=== PATIENT | female | born 1950 | race Caucasian/White ===

== ENCOUNTER → 2022-12-20 10:16 | Outpatient (CLI) | payer MEDICARE, BC, SELFPAY ==
[2022-12-20 11:26] LABS: Alanine Aminotransferase 18 IU/L (<35); Albumin 4.5 g/dL (3.5-5.0); Albumin Globulin Ratio 1.7 (1.0-2.8); Alkaline Phosphatase 65 U/L (38-126); Aspartate Aminotransferase 30 IU/L (14-36); BUN Creatinine Ratio 14.7 (6-22); Bilirubin Total 0.6 mg/dL (0.2-1.3); Blood Urea Nitrogen 10 mg/dL (7-17); Calcium 9.2 mg/dL (8.4-10.2); Carbon Dioxide 31 mmol/L (22-32); Chloride 90 mmol/L (98-107); Cholesterol 221 mg/dL (140-199); Estimated Glomerular Filt Rate > 60 mL/min (>60); Globulin 2.7 g/dL (1.7-4.1); Glucose 113 mg/dL (80-110); HDL Cholesterol 96 mg/dL (40-60); HEMOLYSIS < 15 (0-50); LDL Cholesterol Calculated 104 mg/dL (<100); Potassium 4.4 mmol/L (3.4-5.1); Sodium 130 mmol/L (137-145); Total Protein 7.2 g/dL (6.3-8.2); Triglycerides 105 mg/dL (35-150)
== END ==
PROVIDERS: PCP Family Medicine; Referring Provider Family Medicine; Visit Provider Family Medicine
DX: I10 Essential (primary) hypertension (principal); I48.0 Paroxysmal atrial fibrillation
CPT/HCPCS: 36415; 80053; 80061

== ENCOUNTER → 2023-02-16 12:20 | Outpatient (CLI) | payer MEDICARE, BC, SELFPAY ==
--- NOTE | 2023-02-16 12:21 | DI.RAD.S_ITS ---
Bone Density Report Name: KRYSTYNA COLLIER Age: 72 Sex: Female Ethnicity: White Date of : 1950 Indication: postmenopausal; screening for osteoporosis; Referring Provider: SUSIE VELEZ Study: Bone densitometry was performed. Exam Date: February 16, 2023 Accession number: [id number] Bone Density: Region BMD T-score Z-score Classification AP Spine(L1, L3, L4) 0.983 -0.6 1.7 Normal Femoral Neck (Left) 0.594 -2.3 -0.3 Osteopenia Total Hip (Left) 0.652 -2.4 -0.7 Osteopenia Femoral Neck (Right) 0.631 -2.0 0.0 Osteopenia Total Hip (Right) 0.688 -2.1 -0.4 Osteopenia Total Hip Mean 0.670 -2.3 -0.6 Osteopenia World Health Organization criteria for BMD impression classify patients as: Normal (T-score at or above -1.0), Osteopenia (T-score between -1.0 and -2.5), or Osteoporosis (T-score at or below -2.5). 10-year Fracture Risk(1): Major Osteoporotic Fracture 14% Hip Fracture 3.6% Reported Risk Factors: [place] (), Neck BMD=0.594, BMI=26.5 (1) FRAX(R) Version 3.08. Fracture probability calculated for an untreated patient. Fracture probability may be lower if the patient has received treatment. Impression: The patient has low bone mass, based on the Left Total Hip T-score. The patient has an estimated ten-year risk of hip fracture of 3.6% and an estimated ten-year risk of major fracture of 14%, based on the WHO FRAX algorithm. Discussion: BONE DENSITY IS LOW AT ONE OR MORE SKELETAL SITES. THE PATIENT'S BMD AND CLINICAL RISK FACTORS CONTRIBUTE TO THIS PATIENT'S INCREASED RISK OF FRACTURE. This patient's lowest T-score is low at one or more skeletal sites. It meets the World Health Organization's (WHO) criteria for low bone mass (T-score between -1.0 and -2.5). The patient's 10-year risk of hip fracture as calculated by FRAX exceeds the threshold where pharmacological therapy is recommended by the National Osteoporosis Foundation (NOF). However, all treatment decisions require clinical judgment and consideration of individual patient factors, including patient preferences, comorbidities, previous drug use, risk factors not captured in the FRAX model (e.g., frailty, falls, vitamin D deficiency, increased bone turnover, interval significant decline in bone density) and possible under or overestimation of fracture risk by FRAX. The patient should follow a healthful lifestyle (good nutrition with adequate calcium and vitamin D, and appropriate weight-bearing exercise). Follow-Up: Consider a repeat BMD and Vertebral Fracture Assessment (VFA) exam in 2 years or sooner if medically necessary, to reassess this patient's status. Reported by: RADHA CRAFT M.D. on 02/16/2023 2:28:00 PM.
== END ==
PROVIDERS: PCP Family Medicine; Referring Provider Family Medicine; Visit Provider Family Medicine
DX: Z78.0 Asymptomatic menopausal state (principal); Z13.820 Encounter for screening for osteoporosis; M85.852 Other specified disorders of bone density and structure, left thigh; Z90.710 Acquired absence of both cervix and uterus
CPT/HCPCS: 77080

== ENCOUNTER → 2023-03-26 12:16 | Outpatient (CLI) | payer MEDICARE, BC, SELFPAY ==
--- NOTE | 2023-03-26 12:30 | DI.MRI.S_ITS ---
PROCEDURE: MR LUMBAR SPINE WO CON INDICATIONS: low back pain with radiculopathy TECHNIQUE: Noncontrast sagittal T1 spin echo and T2 fast echo, sagittal STIR, and T2 fast spin echo through the lumbar spine. In cases with scoliosis, additional coronal T2 fast spin echo may be performed. COMPARISON: [facility], MR, MR LUMBAR SPINE WITHOUT CONTRAST, 12/21/2020, 11:39. FINDINGS: Image quality: Excellent. Alignment and Curvature: There is normal bony alignment. Bone Marrow: Reactive endplate changes are present throughout the lumbar spine. Compression deformities at L1 and L2 are unchanged from the comparison MRI dated December 21, 2020. Spinal Cord: Conus medullaris terminates at the T12/L1 level. Visualized cord demonstrates normal signal and size. Paraspinous Soft Tissues: No paravertebral masses. T12-L1: Severe disc desiccation and height loss. Retropulsed fracture fragment is redemonstrated and appears unchanged from the prior study. No canal stenosis. No foraminal stenosis. Findings are unchanged. L1-L2: Severe disc desiccation and height loss. Vacuum disc phenomenon. Retropulsed fracture fragment is redemonstrated and is unchanged. Mild canal stenosis. Moderate bilateral foraminal stenosis. Findings are unchanged. L2-L3: Severe disc desiccation and height loss. Broad-based disc bulge. Mild facet ligamentum flavum hypertrophy. Mild canal stenosis. Mild right and moderate left foraminal stenosis. L3-L4: Severe disc desiccation and height loss. Broad-based disc bulge. Moderate facet and ligamentum flavum hypertrophy. No canal stenosis. Mild right and moderate left foraminal stenosis. Findings are unchanged. L4-L5: Severe disc desiccation and height loss. Broad-based disc bulge. Severe facet ligamentum flavum hypertrophy. No canal stenosis. Moderate bilateral foraminal stenosis. Findings are unchanged. L5-S1: Moderate disc desiccation and height loss. Vacuum disc phenomenon. Severe facet ligamentum flavum hypertrophy. No canal stenosis. Severe bilateral foraminal stenosis. Findings are unchanged. IMPRESSION: 1. Overall findings are similar to the study dated December 21, 2020. These findings include compression deformities at L1 and L2, stable retropulsed fracture fragments at these levels, multilevel severe disc desiccation and height loss, mild canal stenosis at L1-L2 and L2-L3, and severe foraminal narrowing at L5-S1. Dictated by: Pamella Cortes M.D. on 03/27/2023 at 10:24 Approved by: Pamella Cortes M.D. on 03/27/2023 at 10:33
== END ==
PROVIDERS: PCP Family Medicine; Referring Provider Family Medicine; Visit Provider Family Medicine
DX: M54.50 Low back pain, unspecified (principal); G89.29 Other chronic pain; M48.061 Spinal stenosis, lumbar region without neurogenic claudication; M48.56XA Collapsed vertebra, not elsewhere classified, lumbar region, initial encounter for fracture
CPT/HCPCS: 72148

== ENCOUNTER → 2023-08-24 12:32 | Outpatient (CLI) | payer MEDICARE, BC, SELFPAY ==
--- NOTE | 2023-08-24 12:33 | DI.RAD.S_ITS ---
PROCEDURE: XR LUMBAR SPINE MIN 4V INDICATIONS: low back pain TECHNIQUE: 5 views of the lumbar spine were acquired, including bilateral oblique views. COMPARISON: [facility], MR, MR LUMBAR SPINE WO CON, 03/26/2023, 12:31. FINDINGS: Bones: 5 nonrib-bearing vertebrae are present. There is stable bony alignment. No acute vertebral body compression fractures. No suspicious bony lesions. Stable chronic appearing anterior compression fractures of L1 and L2. Severe multilevel lumbar spondylitic changes and facet arthropathy. Soft tissues: Overlying bowel gas pattern is normal. No suspicious soft tissue calcifications. Oblique images: No pars defects. IMPRESSION: No acute osseous abnormalities. Stable appearance of severe multilevel lumbar spondylosis. Stable appearance of chronic compression fractures of L1 and L2. Dictated by: Elbert Jeff M.D. on 08/24/2023 at 19:25 Approved by: Elbert Jeff M.D. on 08/24/2023 at 19:28
== END ==
PROVIDERS: PCP Family Medicine; Referring Provider Anesthesiology; Visit Provider Anesthesiology
DX: M47.26 Other spondylosis with radiculopathy, lumbar region (principal); M51.16 Intervertebral disc disorders with radiculopathy, lumbar region; S32.010D Wedge compression fracture of first lumbar vertebra, subsequent encounter for fracture with routine healing; S32.020D Wedge compression fracture of second lumbar vertebra, subsequent encounter for fracture with routine healing; M54.50 Low back pain, unspecified; G89.29 Other chronic pain
CPT/HCPCS: 72110; 99214

== ENCOUNTER 2023-09-13 08:23 | Outpatient (CLI) | payer MEDICARE, BC, SELFPAY ==
[2023-09-13] VITALS (8 sets, daily range): BP systolic 134–151; BP diastolic 61–69; PULSE 53–66; RESP 12–20; TEMP 36.5; O2SAT 98–100
--- NOTE | 2023-09-13 08:38 | DI.RAD.S_ITS ---
PROCEDURE: PAIN L INTERLAMINAR/CAUDAL INJ INDICATIONS: RADICULOPATHY COMPARISON: [facility], CR, XR LUMBAR SPINE MIN 4V, 08/24/2023, 12:34. FINDINGS: Fluoroscopic spot filming was performed to verify placement of spinal needles at the L5-S1 level(s), as labeled on the films. Appropriate location(s) of the needle tip(s) was confirmed by injection of iodinated contrast. IMPRESSION: Intraoperative guidance provided. Dictated by: Andrae Hooper M.D. on 09/13/2023 at 12:29 Approved by: Andrae Hooper M.D. on 09/13/2023 at 12:30
[2023-09-13] MEDS: MIDAZOLAM 2 MG/2 ML VIAL 1 MG IV (09:02)
[2023-09-13] MEDS: DEXAMETHASONE 10 MG/ML VIAL INJ (09:04)
[2023-09-13] MEDS: iopamidoL 15 ML VIAL 3 ML INJ (09:04)
--- NOTE | 2023-09-13 11:01 | P.PCN_ITS ---
Date/Time/Diagnoses Date of procedure: 09/13/23 Time of procedure: 09:00 Procedure Notes Physician: Daryn Andre Total Fluoroscopy time (seconds): 15 Total sedation minutes: 10 Procedure in detail & Post-procedure care: L5-S1 Interlaminar Epidural Steroid Injection Indications: Agueda is presenting for treatment of lumbar radiculopathy with low back and leg pain. Preoperative diagnosis: Lumbar radiculopathy Postoperative diagnosis: Same Focused Examination: Ax3 Mood and affect are normal Vital Signs: VSS ASA: 3 Consent: Following review of allergies and potential side effects/complications, including, but not necessarily limited to, infection, allergic reaction, local tissue breakdown, stroke, temporary or permanent nerve injury, paralysis, and possible , the patient indicated that they understood and agreed to p roceed.? An informed consent document was signed by the patient, witnessed by a nurse and placed in the patient's chart.? Additionally, other treatment options including medications and physical therapy were reviewed with the patient. All questions were answered. Site was then marked. Anesthesia: After review of previous anesthetic history and IV conscious sedation, the patient was deemed safe to proceed with today's procedure with IV conscious sedation. IV sedation was accomplished with midazolam 1 mg administered by the RN after order by Dr. Andre. Sedation was titrated to patient comfort during the course of the procedure. Patient remained responsive to all verbal commands. Position: Prone Monitoring: NIBP, Pulse oximetry, 3 lead EKG Needle used: 18 G 3.5? Tuohy Contrast: Isovue 300M Injectate: Dexamethasone 10 mg with 1% lidocaine 2 mL Technique: The skin was prepped with chloraprep and then draped in a sterile fashion. Time out was performed as per protocol. Oxygen applied via NC. Skin and subcutaneous structures of the needle entry site was then infiltrated with 3 mL of lidocaine 1%. Under AP, lateral and contralateral oblique fluoroscopic control, the Tuohy needle was guided into the L5-S1 epidural space. The space was accessed with loss of resistance technique. Isovue 300M was then injected and the spread was consistent with the epidural space. There was no evidence for intravascular or intrathecal uptake. After negative aspiration, the above- mentioned injectate was then slowly administered and the needle withdrawn. The patient expressed no unusual discomfort or paresthesias during the injection. Band-Aids applied to injection sites. EBL: less than 1 ml Complications: None Post Procedure: Patient was taken to the recovery and monitored. The patient was provided a Pain Log to continue to record the patient's response to the target- specific procedure prior to the patient's follow-up visit with the referring physician. Patient was stable upon discharge. Detailed post procedure instructions were provided. Patient was asked to call in the event of worsening pain, fever, weakness, numbness or bladder or bowel incontinence.
== END 2023-09-13 08:35 | disposition home or self-care (01) ==
PROVIDERS: PCP Family Medicine; Referring Provider Anesthesiology; Visit Provider Anesthesiology
DX: M54.16 Radiculopathy, lumbar region (principal)
CPT/HCPCS: 62323; 99152; J1100; J2250

== ENCOUNTER 2024-01-10 09:55 | Outpatient (CLI) | payer MEDICARE, BC, SELFPAY ==
[2024-01-10] VITALS (9 sets, daily range): BP systolic 124–185; BP diastolic 58–74; PULSE 53–60; RESP 12–18; O2SAT 97–100
--- NOTE | 2024-01-10 10:30 | DI.RAD.S_ITS ---
PROCEDURE: PAIN L/S TRANSFORAMINAL INJECT INDICATIONS: SPONDYLOSIS COMPARISON: None. FINDINGS: Fluoroscopic spot filming was performed to verify placement of spinal needles at the L4-5 and L5-S1 level(s), as labeled on the films. Appropriate location(s) of the needle tip(s) was confirmed by injection of iodinated contrast. IMPRESSION: Fluoro guidance was provided intraoperatively for right L4-5 and L5-S1 transforaminal YESICA performed by ordering physician. Dictated by: Tha Carpio M.D. on 01/10/2024 at 15:47 Approved by: Tha Carpio M.D. on 01/10/2024 at 15:48
[2024-01-10] MEDS: MIDAZOLAM 2 MG/2 ML VIAL 1 MG IV (10:43)
[2024-01-10] MEDS: DEXAMETHASONE 10 MG/ML VIAL 20 MG INJ (10:46)
[2024-01-10] MEDS: iopamidoL 15 ML VIAL 3 ML INJ (10:47)
[2024-01-10] MEDS: LIDOCAINE 1% (PF) 5 ML INJ (10:47)
[2024-01-10] MEDS: MIDAZOLAM 2 MG/2 ML VIAL 0.5 MG IV (10:55)
--- NOTE | 2024-01-10 12:11 | P.PCN_ITS ---
Date/Time/Diagnoses Date of procedure: 01/10/24 Time of procedure: 10:30 Procedure Notes Physician: Daryn Andre Total Fluoroscopy time (seconds): 32 Total sedation minutes: 18 Procedure in detail & Post-procedure care: Right L4-5 Transforaminal Epidural Steroid Injection Indications: Agueda is presenting for treatment of lumbar radiculopathy with low back and leg pain. Preoperative diagnosis: Lumbar radiculopathy Postoperative diagnosis: Same Focused Examination: Ax3 Mood and affect are normal Vital Signs: VSS ASA: 2 Consent: Following review of allergies and potential side effects/complications, including, but not necessarily limited to, infection, allergic reaction, local tissue breakdown, stroke, temporary or permanent nerve injury, paralysis, and possible , the patient indicated that they understood and agreed to proceed.? An informed consent document was signed by the patient, witnessed by a nurse and placed in the patient's chart.? Additionally, other treatment options including medications and physical therapy were reviewed with the patient. All questions were answered. Site was then marked. Anesthesia: After review of previous anesthetic history and IV conscious sedation, the patient was deemed safe to proceed with today's procedure with IV conscious sedation. IV sedation was accomplished with midazolam 1.5 mg administered by the RN after order by Dr. Andre. Sedation was titrated to patient comfort during the course of the procedure. Patient remained responsive to all verbal commands. Position: Prone Monitoring: NIBP, Pulse oximetry, 3 lead EKG Needle used: 22G, 5 inch spinal needle Contrast: Isovue 300M Injectate: 7.5 mg Dexamethasone mixed with 1% lidocaine 1 ml Technique: The skin was prepped with chloraprep and draped in a sterile fashion. Time out was performed as per protocol. Oxygen applied via NC. Skin and subcutaneous structures of the needle entry site were infiltrated with 3mL of lidocaine 1%. Under fluoroscopic guidance, using an ipsilateral oblique view,?a 22 gauge 5 inch needle was advanced to the base of the right L4?pedicle.? The needle was advanced to the superio-posterior aspect of the neural foramen under lateral view.? Oblique and AP views were rechecked. No paresthesias noted by the patient during needle placement. In AP view and utilizing real-time digital subtraction fluoroscopy, 2 ml contrast was slowly injected. Epidural spread was observed without evidence for intravascular nor intrathecal uptake. Contrast spread was seen craniocaudally. The above injectate was then administered without paresthesias and the needle was subsequently withdrawn. The right L5-S1 level was also attempted but aborted secondary to difficulty accessing the space with obstruction from large osteophytes. Band-Aids applied to injection sites. EBL: less than 1 ml Complications: None Post Procedure: Patient was taken to the recovery and monitored. The patient was provided a Pain Log to continue to record the patient's response to the target- specific procedure prior to the patient's follow-up visit with the referring physician. Patient was stable upon discharge. Detailed post procedure instructions were provided. Patient was asked to call in the event of worsening pain, fever, weakness, numbness or bladder or bowel incontinence.
== END 2024-01-10 11:28 | disposition home or self-care (01) ==
LOC: RAD 09:56
PROVIDERS: PCP Family Medicine; Referring Provider Anesthesiology; Visit Provider Anesthesiology
DX: M54.16 Radiculopathy, lumbar region (principal)
CPT/HCPCS: 64483; 99152; J1100; J2250

== ENCOUNTER 2024-08-11 14:08 | Emergency (ER) | payer MEDICARE, BC, SELFPAY ==
[2024-08-11 14:17] VITALS: BP 132/63; PULSE 69; RESP 18; TEMP 36.6; O2SAT 97; BMI 26.4
--- NOTE | 2024-08-11 16:49 | ED_ITS ---
HPI - Skin/Abscess/Foreign Bdy General Chief complaint: Skin/Abscess/Foreign Body Stated complaint: Fever/poss bacteria infection returned face/neck Time Seen by Provider: 08/11/24 16:49 Source: patient and family Mode of arrival: Ambulatory Limitations: no limitations History of Present Illness HPI narrative: 73-year-old female history of hypertension, dyslipidemia, chronic back pain, paroxysmal atrial fibrillation, rosacea presents with complaint of rash and redness that started in June of her face. She does use makeup she stopped using it did Hibiclens and Aquaphor and it resolved over time. She states she used make up again on Monday had bought new brushes thought she was not using anything she had used before states she might have. Patient states she broke out again on Monday with increased redness on the right forehead and cheek becoming periorbital down her cheeks and towards her neck. Patient states it is a little bit less red today it is itchy and a little bit painful. No crusting o f the eyes her eyelids were swollen. She did some ice which was helpful. Patient states she had a fever of 100.5 at home which prompted her to come for evaluation. She denies any swelling of her lips tongue or airway, no difficulty with breathing, no nausea or vomiting. No shortness of breath. No other GI or urinary symptoms. No rash elsewhere. Patient states she had set up appointment with Dermatology but canceled it because her symptoms had improved. She does have a history of rosacea but states this is a different pattern. Patient notes she was supposed to have follow up preferred no visit before being scheduled for back surgery with Neurosurgery on Monday. Related Data Home Medications Medication Instructions Recorded Confirmed clotrimazole 1 % topical cream 1 applic topical BID 05/30/23 08/02/24 Previous Rx's Medication Instructions Recorded tizanidine 4 mg tablet 4 mg PO Q8H PRN muscle spasticity 12/26/22 #90 tabs desonide 0.05 % topical cream 1 applic topical BID #15 grams 11/01/23 amlodipine 2.5 mg tablet 2.5 mg PO DAILY #90 tabs 02/28/24 clonidine HCl 0.1 mg tablet 0.1 mg PO TID PRN blood pressure 02/28/24 #270 tabs Subcutaneous Supplies Kit #12 ea 06/03/24 hydrocodone 10 mg-acetaminophen 1 tab PO .COMPLEX PRN pain #150 06/03/24 325 mg tablet tabs hydrocodone 10 mg-acetaminophen 1 tab PO .COMPLEX PRN pain #150 06/03/24 325 mg tablet tabs lisinopril 20 1 tab PO BID #180 tabs 06/03/24 mg-hydrochlorothiazide 12.5 mg tablet semaglutide 0.25 mg or 0.5 mg (2 See Rx Instructions SUBCUT QWEEK 06/03/24 mg/3 mL) subcutaneous pen injector #9 mL hydrocodone 10 mg-acetaminophen 1 tab PO Q4H PRN pain #180 tabs 08/04/24 325 mg tablet trazodone 150 mg tablet 150 mg PO BEDTIME PRN sleep #30 08/09/24 tabs doxycycline hyclate 100 mg tablet 100 mg PO BID 7 days #14 tabs 08/11/24 Allergies Allergy/AdvReac Type Severity Reaction Status Date / Time erythromycin base AdvReac Unknown Verified 08/02/24 11:40 Flexaril AdvReac Unknown Uncoded 08/02/24 11:40 Review of Systems Review of Systems ROS Unobtainable: All systems reviewed & are unremarkable except as noted in HPI and below Patient History Medical History Bilateral hip pain Greater trochanteric bursitis of both hips Lumbar degenerative disc disease Lumbar facet arthropathy Compression fracture of L2 Compression fracture of L1 lumbar vertebra Lumbar spondylosis Lumbar radiculopathy Opiate dependence Encounter for initial annual wellness visit (AWV) in Medicare patient Rosacea (~1994) Osteoarthritis (~2014) Asthma (~1954) Migraines (~1977) Headache (~1977) Scoliosis Osteoporosis Fractures Measles (~1957) Hepatitis A (~1975) Chicken pox (~1954) Irregular menstrual cycle Heavy menstrual period (~1983) Hemorrhoid Low back pain Chronic pain Benign essential HTN Paroxysmal A-fib Surgical History Anesthesia History of tonsillectomy (~1954) History of partial hysterectomy (~1985) History of parathyroidectomy (~2014) Family History Father Cancer Mother Alzheimer's disease Social History Smoking Status: Never smoker Smoking Status: Never smoker Exam Narrative Exam Narrative: GEN: well nourished, well appearing female, alert and oriented x 3, patient appears to be in mild distress. HEENT: Atraumatic, pupils are equal round reactive to light, extraocular movements are intact, nares are clear, TMs are clear with no fluid, there is no conjunctival pallor. Throat is clear without any exudates, erythema, tonsillar enlargement or uvular deviation, no swelling of the lips tongue or oropharynx, no difficulty with swallowing no changes to speech. Patient has patchy slightly erythematous some areas or raise summer not of her forehead, periorbital erythema with some slight swelling as well as neck particularly right more than left. No blisters are appreciated. No vesicles. HEART: Regular rate and rhythm without murmur, clicks, rubs. No carotid bruits, pulses are equal in upper and lower extremities LUNGS:Lungs clear to auscultation, no wheezes, rales, crackles, chest moves symmetrically ABD:bowel sounds normal, soft, non-tender, no guarding, rebound, rigidity, no masses noted, no hepatosplenomegaly MSCL: Full range of motion, normal gait NEURO:CN 2-12 intact, sensation normal SKIN: See above, no rash elsewhere appreciated on patient's torso or extremities. Initial Vital Signs Initial Vital Signs: Vital Signs Temperature 97.9 F 08/11/24 14:17 Pulse Rate 69 08/11/24 14:17 Respiratory Rate 18 08/11/24 14:17 Blood Pressure 132/63 08/11/24 14:17 Pulse Oximetry 97 08/11/24 14:17 Oxygen Delivery Method Room Air 08/11/24 14:17 Course Vital Signs Vital signs: Vital Signs - 8 hr 08/11/24 14:17 08/11/24 17:22 Temperature 97.9 F Pulse Rate 69 70 Respiratory Rate 18 18 Blood Pressure 132/63 130/60 Pulse Oximetry 97 Oxygen Delivery Method Room Air MDM - Skin/Abscess/Foreign Bdy MDM Narrative Medical decision making narrative: 73-year-old female with a rash on her face developed in June she attributed to possibly make up in bacterial infection from this did Hibiclens and Aquaphor and it did improve she had had set up follow up with Dermatology but canceled it because her rash had resolved. It recurred after using makeup on Monday patient came concerned because she developed fever of 100.5 at home. She was not had other infectious symptoms she does have a rash on her face not quite consistent with rosacea is a tract stone over her neck. Does not appear to be strictly cellulitis. Rosacea differential discussed with the patient would like for her to follow up with Dermatology. She was to stop all topical and cosmetic products. Patient is to continue with a Hibiclens and Aquaphor if this was helpful last time can use cool compresses to the affected area as well. We will give a prescription for oral antibiotic if persisting or worsening as she did have fever. Discharge Plan Departure Patient Disposition: Home Clinical Impression: Rash of face Activity Restrictions/Additional Instructions: Please follow up with Dermatology and/or primary care. Continue using the Hibiclens and Aquaphor to your skin if this was helpful on your last episode. You may not require or antibiotics but prescription was sent to [facility]. Please return if you are having persistent fevers, rapidly worsening rash, new blisters that are opening or skin sloughing off, swelling of your lips, tongue or airway, chest pain or shortness of breath, vomiting or other new or concerning changes. Prescriptions: New doxycycline hyclate 100 mg tablet 100 mg PO BID 7 Days Qty: 14 0RF No Action hydrocodone-acetaminophen 10-325 mg tablet 1 tab PO Q4H PRN (Reason: pain) Qty: 180 0RF trazodone 150 mg tablet 150 mg PO BEDTIME PRN (Reason: sleep) Qty: 30 11RF Rx Instructions: vacation waiver tizanidine 4 mg tablet 4 mg PO Q8H PRN (Reason: muscle spasticity) Qty: 90 11RF Hold Instructions: Home Medication placed on hold at Doctor's office clotrimazole 1 % cream 1 applic topical BID amlodipine 2.5 mg tablet 2.5 mg PO DAILY Qty: 90 3RF clonidine HCl 0.1 mg tablet 0.1 mg PO TID PRN (Reason: blood pressure) Qty: 270 3RF lisinopril-hydrochlorothiazide 20-12.5 mg tablet 1 tab PO BID Qty: 180 3RF hydrocodone-acetaminophen 10-325 mg tablet 1 tab PO .COMPLEX PRN (Reason: pain) Qty: 150 0RF Hold Instructions: Home Medication placed on hold at Doctor's office Rx Instructions: 5 times daily. rx 2/3 hydrocodone-acetaminophen 10-325 mg tablet 1 tab PO .COMPLEX PRN (Reason: pain) Qty: 150 0RF Hold Instructions: Home Medication placed on hold at Doctor's office Rx Instructions: 5 times daily. rx 3/3 (DME) Subcutaneous Supplies Kit See Rx Instructions .ROUTE .MEDSUPPLY Qty: 12 3RF Rx Instructions: As directed with semaglutide semaglutide 0.25 mg or 0.5 mg (2 mg/3 mL) pen injector See Rx Instructions SUBCUT QWEEK Qty: 9 3RF Rx Instructions: 0.25 mg subQ for 4 weeks, then increase to 0.5 mg subQ weekly. ok to compound. 1 mg/mL desonide 0.05 % cream 1 applic topical BID Qty: 15 8RF Referrals: Justen Melendrez DO [Primary Care Provider] - Stand Alone Forms: Patient Portal/API/Survey
[2024-08-11 17:22] VITALS: BP 130/60; PULSE 70; RESP 18
== END 2024-08-11 17:27 | disposition home or self-care (01) ==
PROVIDERS: Emergency Provider Emergency Medicine; PCP Family Medicine
DX: R21 Rash and other nonspecific skin eruption (principal)
CPT/HCPCS: 99281

== ENCOUNTER 2025-03-23 11:36 | Emergency (ER) | payer MEDICARE, BC, SELFPAY ==
[2025-03-23 11:51] VITALS: BP 173/89; PULSE 88; RESP 16; TEMP 37; O2SAT 98; BMI 25.0
--- NOTE | 2025-03-23 12:22 | DI.CT.S_ITS ---
PROCEDURE: CT LUMBAR SPINE WO CON INDICATIONS: back pain TECHNIQUE: Noncontrast 3 mm thick sections acquired from the T12 level to the sacrum. Sagittal and coronal reformats were constructed. For radiation dose reduction, the following was used: automated exposure control. COMPARISON: [facility], MR, MR LUMBAR SPINE WO CON, 03/26/2023, 12:31. FINDINGS: Image quality: Excellent. Bones: Rightward curvature of the lumbar spine centered at L3. Stable compression deformities of the L1 and L2 vertebrae, with 3 mm endplate retropulsion, resulting in moderate spinal canal narrowing. Moderate to severe, multilevel degenerative disc disease, most prominent at L2-3, L3-4, L4-5 . Diffuse facet arthrosis. L5 hemilaminectomy. Soft tissues: No retroperitoneal masses or hematomas. Visualized aorta is normal in caliber. IMPRESSION: No acute abnormality. Stable mild compression deformities of the L1 and L2 vertebrae, with 3 mm endplate retropulsion. This results in moderate spinal canal narrowing at these levels. Moderate to severe multilevel degenerative disc disease and diffuse facet arthrosis. Dictated by: Mick Figueroa M.D. on 03/23/2025 at 11:43 Approved by: Mick Figueroa M.D. on 03/23/2025 at 11:46
--- NOTE | 2025-03-23 16:19 | ED.BACK ---
HPI - Back Pain/Injury General Chief Complaint: Back Pain/Injury Stated Complaint: 6mon post back surgery; pain radiating leg/foot Time Seen by Provider: 03/23/25 12:22 Source: patient History of Present Illness HPI Narrative: 74-year-old female history of back surgery laminectomy L5-S1 back in August of this year presents with lower back pain radiating down the right leg for the past 3 days unrelieved hydrocodone. She denies trauma to the area recent heavy lifting bowel or bladder incontinence. Nothing makes it better or worse. She has appointment coming up with her PCP this coming Monday. Other than what is stated 14 point review system is negative. Related Data Home Medications ?Medication ?Instructions ?Recorded ?Confirmed clotrimazole 1 % topical cream 1 applic topical BID 05/30/23 10/03/24 Previous Rx's ?Medication ?Instructions ?Recorded desonide 0.05 % topical cream 1 applic topical BID #15 grams 11/01/23 Subcutaneous Supplies Kit #12 ea 06/03/24 lisinopril 20 1 tab PO BID #180 tabs 06/03/24 mg-hydrochlorothiazide 12.5 mg tablet semaglutide 0.25 mg or 0.5 mg (2 See Rx Instructions SUBCUT QWEEK 06/03/24 mg/3 mL) subcutaneous pen injector #9 mL prednisone 20 mg tablet 20 mg PO DAILY #12 tabs 08/27/24 tizanidine 4 mg tablet 4 mg PO Q8H PRN muscle spasticity 09/17/24 #90 tabs amlodipine 2.5 mg tablet 2.5 mg PO DAILY #100 tabs 11/19/24 clonidine HCl 0.1 mg tablet 0.1 mg PO TID PRN blood pressure 11/19/24 #300 tabs trazodone 150 mg tablet 150 - 300 mg (1 - 2 x 150 mg) PO 11/19/24 BEDTIME PRN sleep #60 tabs hydrocodone 10 mg-acetaminophen 1 tab PO Q4H PRN pain #180 tabs 02/12/25 325 mg tablet hydrocodone 10 mg-acetaminophen 1 tab PO Q4H PRN pain #180 tabs 02/12/25 325 mg tablet hydrocodone 10 mg-acetaminophen 1 tab PO Q4H PRN pain #180 tabs 02/12/25 325 mg tablet oxycodone-acetaminophen 7.5 mg-325 1 tab PO Q4-6H PRN pain #20 tabs 03/23/25 mg tablet (Percocet) Allergies Allergy/AdvReac Type Severity Reaction Status Date / Time erythromycin base AdvReac Unknown Verified 03/23/25 11:55 Flexaril AdvReac Unknown Uncoded 03/23/25 11:55 Patient History Medical History (Updated 03/23/25 @ 17:34 by Gregory Cotter DO) Hyperlipidemia, unspecified Bilateral hip pain Greater trochanteric bursitis of both hips Lumbar degenerative disc disease Lumbar facet arthropathy Compression fracture of L2 Compression fracture of L1 lumbar vertebra Lumbar spondylosis Lumbar radiculopathy Opiate dependence Encounter for initial annual wellness visit (AWV) in Medicare patient Rosacea (~1994) Osteoarthritis (~2014) Asthma (~1954) Migraines (~1977) Headache (~1977) Scoliosis Osteoporosis Fractures Measles (~1957) Hepatitis A (~1975) Chicken pox (~1954) Irregular menstrual cycle Heavy menstrual period (~1983) Hemorrhoid Low back pain Chronic pain Benign essential HTN Paroxysmal A-fib Surgical History (Updated 10/03/24 @ 16:13 by Justen Melendrez DO) Status post lumbar laminectomy Anesthesia History of tonsillectomy (~1954) History of partial hysterectomy (~1985) History of parathyroidectomy (~2014) Family History Father Cancer Mother Alzheimer's disease Exam Narrative Exam Narrative: GENERAL: [74] year old patient appears stated age. Well-developed patient, in mild distress. HEAD: Atraumatic. Normocephalic. EYES: Pupils equal round and reactive. Extraocular motions intact. No scleral icterus. No injection or drainage. ENT: Nose without bleeding, purulent drainage. Throat without erythema, tonsillar hypertrophy or exudate. Airway patent. NECK: Trachea midline. Non tender CARDIOVASCULAR: Regular rate and rhythm without murmurs, gallops, or rubs. RESPIRATORY: Clear to auscultation. Breath sounds equal bilaterally. No wheezes, rales, or rhonchi. GASTROINTESTINAL: Abdomen soft, non-tender, nondistended. EXTREMITIES: No edema or joint tenderness. BACK:No deformity or crepitance. No flank tenderness. Midline tenderness L5-S1 NEURO: AOx3. GCS 15 nonfocal neuro exam able to ambulate without gait instability SKIN: No rash or erythema of visible areas Initial Vital Signs Initial Vital Signs: Vital Signs Temperature 98.6 F 03/23/25 11:51 Pulse Rate 88 03/23/25 11:51 Respiratory Rate 16 03/23/25 11:51 Blood Pressure 173/89 H 03/23/25 11:51 Pulse Oximetry 98 03/23/25 11:51 Oxygen Delivery Method Room Air 03/23/25 11:51 Course Orders Ordered: ED Orders 03/23/25 12:22 CT lumbar spine wo con Stat Vital Signs Vital signs: Vital Signs - 8 hr 03/23/25 11:51 Temperature 98.6 F Pulse Rate 88 Respiratory Rate 16 Blood Pressure 173/89 H Pulse Oximetry 98 Oxygen Delivery Method Room Air MDM - Back Pain/Injury Imaging Data Extremity x-ray #1: Radiologist's Impression: [address] [address] [address] Scan Report Signed Patient: Agueda Fernandez MR#: [id number] : 1950 Acct:[id number] Age/Sex: 74 / F Date of Service: 03/23/25 Loc: ED Accession Number: [id number] Procedure: CT lumbar spine wo con Ordering Provider: Gregory Cotter D.O. PROCEDURE: CT LUMBAR SPINE WO CON INDICATIONS: back pain TECHNIQUE: Noncontrast 3 mm thick sections acquired from the T12 level to the sacrum. Sagittal and coronal reformats were constructed. For radiation dose reduction, the following was used: automated exposure control. COMPARISON: [facility], , MR LUMBAR SPINE WO CON, 03/26/2023, 12:31. FINDINGS: Image quality: Excellent. Bones: Rightward curvature of the lumbar spine centered at L3. Stable compression deformities of the L1 and L2 vertebrae, with 3 mm endplate retropulsion, resulting in moderate spinal canal narrowing. Moderate to severe, multilevel degenerative disc disease, most prominent at L2-3, L3-4, L4-5 . Diffuse facet arthrosis. L5 hemilaminectomy. Soft tissues: No retroperitoneal masses or hematomas. Visualized aorta is normal in caliber. IMPRESSION: No acute abnormality. Stable mild compression deformities of the L1 and L2 vertebrae, with 3 mm endplate retropulsion. This results in moderate spinal canal narrowing at these levels. Moderate to severe multilevel degenerative disc disease and diffuse facet arthrosis. MDM Narrative Medical decision making narrative: All lab work, vital signs, nurse triage note, medication list, previous ER visits, and all imaging studies reviewed. CT lumbar spine showed no acute abnormality. Stable mild compression deformities of L1-L2 with 3 mm endplate retropulsion. This results in moderate spinal canal. Narrowing at these levels moderate to severe multilevel degenerative disc disease and diffuse facet arthrosis arthrosis. Patient given Dilaudid Toradol and prednisone. DC home on Percocet rx. Discharge Plan Departure Patient Disposition: Home Clinical Impression: Low back pain Qualifiers: Chronicity: acute Back pain laterality: midline Sciatica presence: with sciatica Sciatica laterality: sciatica of right side Qualified Code(s): M54.41 - Lumbago with sciatica, right side Instructions: DI for Low Back Pain Activity Restrictions/Additional Instructions: Return with new or worsening symptoms. Take your medicines directed. Follow up PCP and and back surgeon call office for appointment. Prescriptions: New oxycodone-acetaminophen [Percocet] 7.5-325 mg tablet 1 tab PO Q4-6H PRN (Reason: pain) Qty: 20 0RF No Action tizanidine 4 mg tablet 4 mg PO Q8H PRN (Reason: muscle spasticity) Qty: 90 11RF clotrimazole 1 % cream 1 applic topical BID lisinopril-hydrochlorothiazide 20-12.5 mg tablet 1 tab PO BID Qty: 180 3RF (DME) Subcutaneous Supplies Kit See Rx Instructions .ROUTE .MEDSUPPLY Qty: 12 3RF Rx Instructions: As directed with semaglutide semaglutide 0.25 mg or 0.5 mg (2 mg/3 mL) pen injector See Rx Instructions SUBCUT QWEEK Qty: 9 3RF Rx Instructions: 0.25 mg subQ for 4 weeks, then increase to 0.5 mg subQ weekly. ok to compound. 1 mg/mL prednisone 20 mg tablet 20 mg PO DAILY Qty: 12 0RF amlodipine 2.5 mg tablet 2.5 mg PO DAILY Qty: 100 3RF clonidine HCl 0.1 mg tablet 0.1 mg PO TID PRN (Reason: blood pressure) Qty: 300 3RF trazodone 150 mg tablet 150 - 300 mg PO BEDTIME PRN (Reason: sleep) Qty: 60 11RF Rx Instructions: vacation waiver hydrocodone-acetaminophen 10-325 mg tablet 1 tab PO Q4H PRN (Reason: pain) Qty: 180 0RF Rx Instructions: rx 1/3. hydrocodone-acetaminophen 10-325 mg tablet 1 tab PO Q4H PRN (Reason: pain) Qty: 180 0RF Rx Instructions: rx 2/3. hydrocodone-acetaminophen 10-325 mg tablet 1 tab PO Q4H PRN (Reason: pain) Qty: 180 0RF Rx Instructions: rx 3/3 desonide 0.05 % cream 1 applic topical BID Qty: 15 8RF Referrals: Justen Melendrez DO [Primary Care Provider, Family Practice] Stand Alone Forms: Patient Portal/API
[2025-03-23] MEDS: KETOROLAC 30 MG/ML VIAL 15 MG IM (17:39)
[2025-03-23 18:00] VITALS: BP 170/76; PULSE 69; RESP 16; O2SAT 96
== END 2025-03-23 18:21 | disposition home or self-care (01) ==
PROVIDERS: Emergency Provider Family Medicine; PCP Family Medicine
DX: M54.41 Lumbago with sciatica, right side (principal)
CPT/HCPCS: 72131; 96372; 99283; 99284; J1171; J1885

== ENCOUNTER → 2025-03-29 11:09 | Outpatient (CLI) | payer MEDICARE, BC, SELFPAY ==
--- NOTE | 2025-03-29 11:12 | DI.MRI.S_ITS ---
PROCEDURE: MR LUMBAR SPINE WO/W CON INDICATIONS: LUMBAR RADICULOPATHY TECHNIQUE: Noncontrast sagittal T1 spin echo and T2 fast spin echo, sagittal STIR, axial T1 and T2 fast spin echo through the lumbar spine. In cases with scoliosis, additional coronal T2 fast spin echo may be performed. After the administration of contrast, sagittal and axial T1 spin echo with fat saturation through the lumbar spine. COMPARISON: [facility], MR, MR LUMBAR SPINE WO CON, 03/26/2023, 12:31. [facility], CT, CT LUMBAR SPINE WO CON, 03/23/2025, 12:31. FINDINGS: Image quality: Excellent. Alignment and curvature: Mild S-shaped scoliotic curvature. Focal kyphosis centered at L1-L2. Mild retrolisthesis of L2 on L3, L3-L4 L5. Marrow: Stable chronic compression deformities of L1 on L2 with mild retropulsion. Multilevel degenerative endplate changes. Marrow is of normal overall signal. No acute vertebral body compression fractures. No suspicious marrow enhancement. Spinal cord: Conus medullaris terminates at the T12-L1 level. Visualized spinal cord demonstrates normal signal, without suspicious enhancement. Paraspinous soft tissues: No paravertebral masses or abnormal enhancement. T12-L1: Disc desiccation and mild disc bulge. Facet arthropathy. Retropulsion. No central canal or neural foraminal stenosis. L1-L2: Disc desiccation and mild disc bulge. Facet arthropathy. Retropulsion. Mild central canal stenosis and moderate bilateral neural foraminal stenosis is stable. L2-L3: Disc desiccation is severe height loss. Diffuse disc bulge. Facet arthropathy. Mild central canal stenosis. Mild right and moderate left neural foraminal stenosis is stable. L3-L4: Disc desiccation and severe height loss. Mild disc bulge. Facet arthropathy. No central canal stenosis. Mild right and moderate left neural foraminal stenosis is stable. L4-L5: Disc desiccation and moderate height loss. Mild disc bulge. Facet arthropathy. No central canal stenosis. Moderate bilateral neural foraminal stenosis is stable. L5-S1: Disc desiccation and mild diffuse disc bulge. Facet arthropathy. No central canal stenosis. Severe bilateral neural foraminal stenosis. Prior right-sided decompression. IMPRESSION: Stable degenerative changes of the lumbar spine as described above. Mild central canal stenosis at L1-L2 and L2-L3. Severe bilateral neural foraminal stenosis at L5-S1. Stable compression deformities of L1 and L2. Dictated by: Roger Peters M.D. on 03/31/2025 at 8:11 Approved by: Roger Peters M.D. on 03/31/2025 at 8:23
== END ==
PROVIDERS: PCP Family Medicine; Referring Provider Neurological Surgery; Visit Provider Neurological Surgery
DX: M54.16 Radiculopathy, lumbar region (principal); M48.061 Spinal stenosis, lumbar region without neurogenic claudication; M48.07 Spinal stenosis, lumbosacral region; M47.816 Spondylosis without myelopathy or radiculopathy, lumbar region; M51.35 Other intervertebral disc degeneration, thoracolumbar region; M47.815 Spondylosis without myelopathy or radiculopathy, thoracolumbar region; M51.369 Other intervertebral disc degeneration, lumbar region without mention of lumbar back pain or lower extremity pain; M51.379 Other intervertebral disc degeneration, lumbosacral region without mention of lumbar back pain or lower extremity pain; M47.817 Spondylosis without myelopathy or radiculopathy, lumbosacral region
CPT/HCPCS: 72158; A9579

== ENCOUNTER → 2025-04-23 10:33 | Outpatient (CLI) | payer MEDICARE, BC, SELFPAY ==
[2025-04-23 11:11] LABS: Hematocrit 35.6 % (36-46); Hemoglobin 12.2 g/dL (12.0-16.0); Mean Corpuscular HGB Conc 34.4 % (30-36); Mean Corpuscular Hemoglobin 31.3 PG (26-34); Mean Corpuscular Volume 91.0 fL (80-100); Platelet Count 281 X10^3/uL (150-400)
[2025-04-23 11:22] LABS: Alanine Aminotransferase 14 IU/L (<35); Albumin 4.5 g/dL (3.5-5.0); Albumin Globulin Ratio 2.0 (1.0-2.8); Alkaline Phosphatase 53 U/L (38-126); Blood Urea Nitrogen 12 mg/dL (7-17); Calcium 9.2 mg/dL (8.4-10.2); Carbon Dioxide 30 mmol/L (22-32); Chloride 90 mmol/L (98-107); Cholesterol 219 mg/dL (140-199); Estimated Glomerular Filt Rate > 60 mL/min (>60); Globulin 2.2 g/dL (1.7-4.1); Glucose 96 mg/dL (70-99); HDL Cholesterol 109 mg/dL (40-60); HEMOLYSIS < 15 (0-50); Potassium 3.2 mmol/L (3.4-5.1); Sodium 131 mmol/L (137-145); Total Protein 6.7 g/dL (6.3-8.2); Triglycerides 84 mg/dL (35-150)
[2025-04-23 11:37] LABS: Hemoglobin A1C% w Est Avg Glu 5.2 % (4.0-6.0)
[2025-04-23 12:25] LABS: Hep C Virus Ab w/Reflex Quant NEGATIVE s/c (NEGATIVE)
== END ==
PROVIDERS: PCP Family Medicine; Referring Provider Family Medicine; Visit Provider Family Medicine
DX: Z00.00 Encounter for general adult medical examination without abnormal findings (principal); I10 Essential (primary) hypertension; R73.01 Impaired fasting glucose; E78.5 Hyperlipidemia, unspecified
CPT/HCPCS: 36415; 80053; 80061; 83036; 85027; 86803